=== PATIENT | female | born 1980 | race Caucasian/White ===

== ENCOUNTER 2018-01-22 18:07 | Inpatient (IN) ==
[2018-01-22] MEDS ORDERED: Sod Chloride 0.9% Inj 1,000 ML IV.CONT PRN (18:26)
[2018-01-22] MEDS ORDERED: Sodium Chlor 0.9% Inj 500 ML IV.SIG PRN (18:26)
[2018-01-22] MEDS ORDERED: Oxytocin 30 Units/500ml Premix 30 UNITS/500 ML BAG IV.SIG ONE (18:26)
[2018-01-22] MEDS ORDERED: Naloxone Inj 0.4 MG/ML Vial IV.PUSH PRN (18:26)
[2018-01-22] MEDS ORDERED: fentaNYL Citrate Inj 100 MCG/2 ML Ampul IV.PUSH PRN ×2 (18:26)
[2018-01-22] MEDS ORDERED: Sod Chloride 0.9% Inj 1,000 ML IRRIGATION SCH (18:30)
[2018-01-22] MEDS ORDERED: Citric Acid/Sodium Citrate Liq 30 ML UDC PO SCH (18:30)
--- NOTE | 2018-01-22 18:43 | P.HPOB ---
History of Present Illness Service: Obstetrics Primary Care Physician: No Primary Care Physician Chief Complaint: oligohydramnios, induction at term History of Present Illness: 37 yo with EDC 01/22/18 here for labor induction due to oligohydramnios on routine office ultrasound today, TASNEEM 4cm. Pt without complaints, mild irregular cramping, no regular contractions, no leakage of fluid no vaginal bleeding. Endorses good movement. Pain 1/10 pelvic pressure. Weeks Gestation:: 40 Para: 1 : 3 Total # of Miscarriage(s): 1 - Inpatient Certification I certify that the inpatient services were ordered in accordance with Medicare regulations governing the order. This includes certification that hospital inpatient services are reasonable and necessary and in the case of services not specified as inpatient-only under 42 CFR 419.22(n), that they are appropriately provided as inpatient services in accordance to with the 2-midnight benchmark under 43 CFR 412.3(e) Estimated Total Length of Stay (Days): 5 Plans for Post Hospital Care: Home Review of Systems All other systems reviewed negative except as stated in HPI [facility] - Medical History Medical History: Medical History (Last Updated 01/22/18 @ 18:38 by Vaishali Harmon MD) No significant past medical history - Surgical History Surgical History: Surgical History (Last Updated 01/22/18 @ 18:38 by Vaishali Harmon MD) History of dilation and curettage - Family History Family History: Family History (Last Updated 01/22/18 @ 18:38 by Vaishali Harmon MD) Other No significant family history - Tobacco History Second Hand Smoke Exposure: No Tobacco Use In Past 30 Days: No Smoking Status: Never smoker - Alcohol History How Often Do You Have a Drink Containing Alcohol: Never - Substance Use History Substance History: No History of Abuse - Travel History History of Recent Travel: No Recent Travel in the [place] Within the Last 8 Weeks: No Recent Travel Out of the Country Within the Last 8 Weeks: No Medications and Allergies Active Medications: Active Medications Citric Acid/Sodium Citrate (Sodium Citrate/Citric Acid Liq) 30 ml 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 Stop: 01/26/18 18:29 Dinoprostone (Cervidil Vag Insert) 10 mg VAGINAL ONCE ONE Stop: 01/22/18 18:27 Fentanyl Citrate (Fentanyl Inj) 50 mcg IV.PUSH Q1H PRN PRN Reason: Pain Scale 3 - 5 Fentanyl Citrate (Fentanyl Inj) 100 mcg IV.PUSH Q1H PRN PRN Reason: PAIN SCALE 6 TO 10 Lactated Ringer's (Lr 1000 Ml Inj) 1,000 mls @ 3,000 mls/hr IV.SIG UNSCH PRN PRN Reason: compromise or epidural Sodium Chloride (Ns Inj) 500 mls @ 1,000 mls/hr IV.SIG UNSCH PRN PRN Reason: SEE LABEL COMMENTS Sodium Chloride (Ns Inj) 1,000 mls @ 100 mls/hr IV.CONT .Q10H PRN PRN Reason: SEE LABEL COMMENTS Oxytocin (Pitocin 30 Units/Ns 500 Ml Premix) 30 units in 500 mls @ 999 mls/hr IV.SIG BOLUS ONE Stop: 01/22/18 18:56 Sodium Chloride (Ns Inj) 1,000 mls @ 0 mls/hr IRRIGATION .Q0M SUZIE Stop: 01/23/18 18:29 Lidocaine HCl (Xylocaine 1% Inj) 0.1 ml I-DERMAL PRN PRN PRN Reason: For IV start Stop: 01/25/18 18:25 Lidocaine HCl (Xylocaine 1% Inj) 10 ml INFILTRATN PRN PRN PRN Reason: For episiotomy repair Stop: 01/24/18 18:25 Mineral Oil (Muri-Lube Oil) 10 ml TOPICAL PRN PRN PRN Reason: PRN perineal massage Miscellaneous Information ([facility] Nursing Information) 1 each OTHER ONCE ONE Stop: 01/22/18 18:27 Naloxone HCl (Narcan Inj) 0.1 mg IV.PUSH Q2M PRN PRN Reason: for opiate reversal Ondansetron HCl (Zofran Inj) 4 mg IV.PUSH Q6H PRN PRN Reason: NAUSEA OR VOMITING Sodium Chloride (Ns Flush) 2 ml IV.FLUSH BID SUZIE Sodium Chloride (Ns Flush) 2 ml IV.FLUSH PRN PRN PRN Reason: FLUSH AFTER USING IV ACCESS Allergies Allergy/AdvReac Type Severity Reaction Status Date / Time penicillin G Allergy Mild Unverified 01/28/17 21:58 Exam - Constitutional no acute distress - Routine HEENT Exam Head: Present: normocephalic, atraumatic Eye: Present: EOMI, PERRL ENT: Present: mucous membranes moist - Routine Neck Exam Present: supple, full ROM - Routine Chest/Breast/Axilla Exam Chest wall: Absent: tenderness, mass - Routine Respiratory Exam Absent: accessory muscle use, respiratory distress - Routine Cardiovascular Exam Present: RRR. Absent: bradycardia - Routine Abdominal Exam Present: normoactive bowel sounds Comments: size c/w dates; gravid to 40 weeks - Routine Exam Comments: SVE /-3 - Routine Extremities Exam Absent: cyanosis, clubbing, edema - Routine Skin Exam Present: intact. Absent: cyanosis - Routine Neurological Exam Present: alert, oriented X3 Results - Labs Group B Strep: Negative Caprini VTE Risk Assessment Caprini VTE Risk Assessment: No/Low Risk (score <= 1) VTE Pharmacological Exception Reason: Epidural catheter Caprini Risk Assessment Model: Point Value = 1 Point Value = 2 Point Value = 3 Point Value = 5 Age 41-60 Minor surgery BMI > 25 kg/m2 Swollen legs Varicose veins or History of unexplained or recurrent spontaneous Oral contraceptives or hormone replacement Sepsis (< 1 month) Serious lung disease, including pneumonia (< 1 month) Abnormal pulmonary function Acute myocardial infarction Congestive heart failure (< 1 month) History of inflammatory bowel disease Medical patient at bed rest Age 61-74 Arthroscopic surgery Major open surgery (> 45 min) Laparoscopic surgery (> 45 min) Malignancy Confined to bed (> 72 hours) Immobilizing plaster cast Central venous access Age >= 75 History of VTE Family history of VTE Factor V Leiden Prothrombin [id number] Lupus anticoagulant Anticardiolipin antibodies Elevated serum homocysteine Heparin-induced thrombocytopenia Other congenital or acquired thrombophilia Stroke (< 1 month) Elective arthroplasty Hip, pelvis, or leg fracture Acute spinal cord injury (< 1 month) Prophylaxis Regimen: Total Risk Factor Score Risk Level Prophylaxis Regimen 0-1 Low Early ambulation 2 Moderate Order ONE of the following: *Sequential Compression Device (SCD) *Heparin 5000 units SQ BID 3-4 Higher Order ONE of the following medications: *Heparin 5000 units SQ TID *Enoxaparin/Lovenox 40 mg SQ daily (WT < 150 kg, CrCl > 30 mL/min) *Enoxaparin/Lovenox 30 mg SQ daily (WT < 150 kg, CrCl > 10-29 mL/min) *Enoxaparin/Lovenox 30 mg SQ BID (WT < 150 kg, CrCl > 30 mL/min) AND/OR *Sequential Compression Device (SCD) 5 or more Highest Order ONE of the following medications: *Heparin 5000 units SQ TID (Preferred with Epidurals) *Enoxaparin/Lovenox 40 mg SQ daily (WT < 150 kg, CrCl > 30 mL/min) *Enoxaparin/Lovenox 30 mg SQ daily (WT < 150 kg, CrCl > 10-29 mL/min) *Enoxaparin/Lovenox 30 mg SQ BID (WT < 150 kg, CrCl > 30 mL/min) AND *Sequential Compression Device (SCD) Assessment and Plan - Diagnosis (1) Oligohydramnios Code(s): O41.00X0 - Oligohydramnios, unspecified trimester, not applicable or unspecified Status: Acute (2) Term Code(s): Z34.80 - Encounter for supervision of other normal , unspecified trimester Status: Acute - Plan 37 yo with fatima IUP at 40w seen in office for routine visit and ultrasound with finding of TASNEEM 4cm, dx with oligohydramnios. 1) oligohydramnios, for labor induction: r/b/a d/w pt & including risk of distress, risk of failure of induction, risk of need for , pt voices understanding and consents to induction as indicated; orders for cervidil on admission, re-evaluate for addt'l augmentation methods as needed 2) GBS neg 3) status: vertex, sex unknown (per pt preference), EFW >8#, Cat I tracing currently, TASNEEM 4cm Discharge Planning: routine, 2-3d PP (1) Oligohydramnios Qualifiers: Fetus number: single or unspecified fetus Trimester: third trimester Qualified Code(s): O41.03X0 - Oligohydramnios, third trimester, not applicable or unspecified
[2018-01-22 20:57] LABS: Baso % (Auto) 0.4 % (0.0-2.0); Eos % (Auto) 0.2 % (0.0-4.0); Hematocrit 34.8 % (35.0-46.0); Hemoglobin 12.2 gm/dL (11.6-15.3); Lymph # (Auto) 1.5 th/mm3 (1.0-4.8); Lymph % (Auto) 14.3 % (9.0-44.0); Mean Corpuscular Hemoglobin 30.4 pg (27.0-34.0); Mean Platelet Volume 10.7 fL (7.0-11.0); Mono # (Auto) 0.8 th/mm3 (0.0-0.9); Mono % (Auto) 7.7 % (0.0-8.0); Neut # (Auto) 8.1 th/mm3 (1.8-7.7); Neut % (Auto) 77.4 % (16.0-70.0); Platelet Count 130 th/mm3 (150-450); Red Cell Distribution Width 14.6 % (11.6-17.2); White Blood Count 10.5 th/mm3 (4.0-11.0)
[2018-01-22 22:13] LABS: Bacteria,Urine Moderate /hpf; Bilirubin,Urine Negative (Negative); Calcium Oxalate Crystals,Urine Many /hpf; Clarity,Urine Turbid (Clear); Color,Urine Amber (Yellw/Straw); Glucose,Urine (UA) Negative (Negative); Leukocyte Esterase,Urine Large (Negative); Mucus,Urine Few /lpf (Occasional); Nitrite,Urine Negative (Negative); Specific Gravity,Urine 1.029 (1.002-1.035); Squamous Epithelial Cell,Urine 20 /hpf (0-5)
[2018-01-22 22:24] LABS: Amphetamine Urine With Conf Neg (Neg); Benzodiazepine Urine With Conf Neg (Neg)
[2018-01-23] MEDS ORDERED: Oxytocin 30 Units/500ml Premix 30 UNITS/500 ML BAG IV.SIG PRN (12:00)
[2018-01-23] MEDS ORDERED: fentaNYL 2MCG-Bupiv 0.125% Epi 150 ML EPIDURAL ONE (15:21)
[2018-01-23] MEDS ORDERED: fentaNYL Citrate Inj 100 MCG/2 ML Ampul EPIDURAL ONE (16:07)
[2018-01-23] MEDS ORDERED: fentaNYL 2MCG-Bupiv 0.125% Epi 150 ML EPIDURAL PRN (16:07)
[2018-01-24] MEDS ORDERED: Benzocaine 20% Top Spray 60 ML Can TOPICAL PRN (03:17)
[2018-01-24] MEDS ORDERED: Naloxone Inj 0.4 MG/ML Vial IV.PUSH PRN (03:17)
[2018-01-24] MEDS ORDERED: Zolpidem Tartrate 5 MG Tablet PO PRN (03:17)
[2018-01-24] MEDS ORDERED: Acetaminophen 325 MG Tablet PO PRN (03:17)
[2018-01-24] MEDS ORDERED: Bisacodyl 10 MG Supp RECTAL PRN (03:17)
--- NOTE | 2018-01-24 03:17 | P.OBDELI ---
Weeks Gestation: 40 Patient Started Active Labor: Yes Active Labor Start Date: 01/23/18 Active Labor Start Time: 22:00 Medical Induction of Labor: Yes Medical Induction Start Date: 01/22/18 Medical Induction Start Time: 22:00 Artificial Rupture of Membrane: Yes Artificial ROM Date: 01/23/18 Artificial ROM Time: 22:00 Anesthesia: Epidural Episiotomy: none Vaginal Delivery: Normal Presentation: Occiput anterior Nuchal Cord: None Delayed Cord Clamping (45 sec): Yes Placenta: Spontaneous delivery Laceration: 2 deg Repair: Chromic interrupted, Vicryl running Estimated blood loss (mL): 300 Infant: Female
[2018-01-24] MEDS ORDERED: Oxytocin 30 Units/500ml Premix 30 UNITS/500 ML BAG IV.CONT SCH (03:30)
[2018-01-24] MEDS ORDERED: PNV CMB FERROUS FUMARATE FA PO SCH (09:00)
[2018-01-24] MEDS: Witch Hazel 50%/Glyderin 12.5% 40 Pad Jar RECTAL PRN (09:16)
[2018-01-24] MEDS: Senna/Docusate Sodium 8.6/50 MG Tablet PO SCH (09:16)
[2018-01-24] MEDS: Ibuprofen 400 MG Tablet PO PRN ×2 (09:17→19:33)
--- NOTE | 2018-01-24 10:01 | P.PNOB ---
Subjective Post day: 0 Interval history: doing well, Objective Vital Signs/I&O: Vital Signs 01/23/18 11:34 01/23/18 12:14 01/23/18 12:31 Temperature 98.1 F Pulse Rate 69 72 67 Respiratory Rate 17 Blood Pressure 129/71 132/92 H 120/74 01/23/18 13:00 01/23/18 13:30 01/23/18 14:00 Temperature Pulse Rate 61 66 73 Respiratory Rate Blood Pressure 117/69 123/74 124/70 01/23/18 14:21 01/23/18 14:30 01/23/18 15:01 Temperature 98.2 F Pulse Rate 74 60 Respiratory Rate 16 Blood Pressure 119/73 114/75 01/23/18 15:39 01/23/18 15:40 01/23/18 15:45 Temperature Pulse Rate 73 73 75 Respiratory Rate Blood Pressure 133/87 132/84 119/71 01/23/18 15:55 01/23/18 16:00 01/23/18 16:25 Temperature Pulse Rate 71 75 68 Respiratory Rate Blood Pressure 119/71 119/68 116/63 01/23/18 16:31 01/23/18 17:01 01/23/18 17:30 Temperature Pulse Rate 75 63 63 Respiratory Rate Blood Pressure 111/75 103/46 L 120/83 01/23/18 18:01 01/23/18 18:30 01/23/18 18:59 Temperature 97.8 F Pulse Rate 66 67 Respiratory Rate 18 Blood Pressure 112/68 127/82 01/23/18 19:00 01/23/18 19:15 01/23/18 19:45 Temperature Pulse Rate 75 63 Respiratory Rate 18 18 Blood Pressure 133/91 H 119/79 01/23/18 20:15 01/23/18 20:24 01/23/18 20:31 Temperature 98.2 F Pulse Rate 63 Respiratory Rate 18 18 Blood Pressure 105/91 H 01/23/18 21:04 01/23/18 21:31 01/23/18 22:00 Temperature Pulse Rate 64 63 66 Respiratory Rate 18 Blood Pressure 111/60 106/56 L 119/61 01/23/18 22:45 01/23/18 23:01 01/23/18 23:30 Temperature 98.4 F Pulse Rate 73 Respiratory Rate 18 Blood Pressure 123/82 119/78 01/24/18 00:01 01/24/18 00:15 01/24/18 00:30 Temperature Pulse Rate 56 L 66 Respiratory Rate 18 Blood Pressure 115/70 124/86 01/24/18 01:15 01/24/18 01:30 01/24/18 02:01 Temperature Pulse Rate 66 99 H Respiratory Rate 18 Blood Pressure 130/82 112/88 01/24/18 02:05 01/24/18 02:15 01/24/18 03:00 Temperature 98.5 F Pulse Rate 87 Respiratory Rate 18 Blood Pressure 145/76 H 01/24/18 03:28 01/24/18 03:31 01/24/18 03:34 Temperature 98.9 F Pulse Rate 88 74 Respiratory Rate 20 18 Blood Pressure 133/84 124/68 01/24/18 04:00 01/24/18 04:01 01/24/18 05:00 Temperature 99.2 F Pulse Rate 89 67 Respiratory Rate 18 18 Blood Pressure 110/81 121/69 01/24/18 07:47 Temperature 98.0 F Pulse Rate 69 Respiratory Rate 20 Blood Pressure 127/73 Intake & Output 01/23/18 01/24/18 01/24/18 18:59 06:59 18:59 Weight 95 kg Other: Weight On Admission 165 kg Result Diagrams: 01/22/18 19:45 Objective Remarks: GENERAL: Well-nourished, well-developed patient. CARDIOVASCULAR: Regular rate and rhythm without murmurs, gallops, or rubs. RESPIRATORY: Breath sounds equal bilaterally. No accessory muscle use. ABDOMEN/GI: Abdomen soft, non-tender. Fundus: Firm, non-tender at umbilicus. GENITOURINARY: Light to moderate bleeding. EXTREMITIES: No cyanosis or edema, non-tender, without signs of DVT. Medications and IVs: Active Medications Acetaminophen (Tylenol) 650 mg PO Q4H PRN PRN Reason: PAIN SCALE 1 TO 2 Al Hydroxide/Mg Hydroxide (Milk Of Magnesia Liq) 30 ml PO Q12H PRN PRN Reason: Mild Constipation Benzocaine (Americaine 20% Top [place]) 1 spray TOPICAL Q4H PRN PRN Reason: For Perineum Discomfort Last Admin: 01/24/18 09:16 Dose: 1 spray Bisacodyl (Dulcolax Supp) 10 mg RECTAL DAILY PRN PRN Reason: SEVERE CONSITIPATION Citric Acid/Sodium Citrate (Sodium Citrate/Citric Acid Liq) 30 ml PO MANAGER STRATEGIC SOURCING [facility] Stop: 01/26/18 18:29 Last Admin: 01/23/18 23:03 Dose: 30 ml Diphtheria/Pertussis/Tetanus Vacc (Boostrix Vaccine Inj) 0.5 ml IM .ONCE ONE Stop: 01/24/18 16:01 Ibuprofen (Motrin) 800 mg PO Q8H PRN PRN Reason: For cramping Last Admin: 01/24/18 09:17 Dose: 800 mg Lactulose (Lactulose Liq) 30 ml PO DAILY PRN PRN Reason: SEVERE CONSITIPATION Measles/Mumps/Rubella Vaccine Live (M-M-R Ii Vaccine Inj) 0.5 ml SQ .ONCE ONE Stop: 01/24/18 16:01 Miscellaneous Information (Misc Information) 1 each OTHER UNSCH PRN PRN Reason: SEE LABEL COMMENTS Stop: 01/24/18 16:07 Miscellaneous Information (Misc Information) 1 each OTHER UNSCH PRN PRN Reason: SEE LABEL COMMENTS Stop: 01/24/18 16:07 Naloxone HCl (Narcan Inj) 0.1 mg IV.PUSH Q2M PRN PRN Reason: for opiate reversal Ondansetron HCl (Zofran Odt) 4 mg PO Q6H PRN PRN Reason: NAUSEA OR VOMITING Pnv Cmb#95-Ferrous Fumarate-Fa [ ] 1 Tab) 0 each PO DAILY [facility] Senna/Docusate Sodium (Kacy-Colace) 1 tab PO BID [facility] Last Admin: 01/24/18 09:16 Dose: 1 tab Sennosides (Senokot) 17.2 mg PO Q12H PRN PRN Reason: Moderate Constipation Sodium Chloride (Ns Flush) 2 ml IV.FLUSH BID [facility] Sodium Chloride (Ns Flush) 2 ml IV.FLUSH PRN PRN PRN Reason: FLUSH AFTER USING IV ACCESS Witch Carole/Glycerin (Tucks Pads) 1 applicatio RECTAL QID PRN PRN Reason: HEMORRHOIDS Last Admin: 01/24/18 09:16 Dose: 1 applicatio Zolpidem Tartrate (Ambien) 5 mg PO HS PRN PRN Reason: SLEEP Assessment and Plan - Diagnosis (1) Oligohydramnios Code(s): O41.00X0 - Oligohydramnios, unspecified trimester, not applicable or unspecified Status: Acute (2) Term Code(s): Z34.80 - Encounter for supervision of other normal , unspecified trimester Status: Acute (3) Vaginal delivery Code(s): O80 - Encounter for full-term uncomplicated delivery Status: Acute - Plan 37 yo with fatima IUP at 40w seen in office for routine visit and ultrasound with finding of TASNEEM 4cm, dx with oligohydramnios. s/p PPD#0, 9lbs 11 oz, female continue PP care consider d/c home in am Discharge Planning: routine - Attending Attestation pt seen by me (1) Oligohydramnios Qualifiers: Fetus number: single or unspecified fetus Trimester: third trimester Qualified Code(s): O41.03X0 - Oligohydramnios, third trimester, not applicable or unspecified
[2018-01-24] MEDS ORDERED: Diphtheria/Tetanus/Pertussis Vaccine Inj 0.5 ML Syringe IM ONE (16:00)
[2018-01-24] MEDS ORDERED: Measles/Mumps/Rubella Vaccine Inj 0.5 ML Vial SQ ONE (16:00)
[2018-01-25] MEDS: Senna/Docusate Sodium 8.6/50 MG Tablet PO SCH ×2 (04:18→08:01)
--- NOTE | 2018-01-25 09:17 | P.PNOB ---
Subjective Post day: 1 Interval history: pt states baby is NICU for low O2 sat, doing better now Objective Vital Signs/I&O: Vital Signs 01/24/18 19:30 01/25/18 07:28 Temperature 98.1 F 97.9 F Pulse Rate 70 55 L Respiratory Rate 18 20 Blood Pressure 128/69 121/69 Intake & Output 01/24/18 01/25/18 01/25/18 18:59 06:59 18:59 Intake Total Balance Intake: Intake (Blood Product) Amt Rho(D) Immune Globulin Unit [id number] Result Diagrams: 01/22/18 19:45 Objective Remarks: GENERAL: Well-nourished, well-developed patient. CARDIOVASCULAR: Regular rate and rhythm without murmurs, gallops, or rubs. RESPIRATORY: Breath sounds equal bilaterally. No accessory muscle use. ABDOMEN/GI: Abdomen soft, non-tender. Fundus: Firm, non-tender at umbilicus. GENITOURINARY: Light to moderate bleeding. EXTREMITIES: No cyanosis or edema, non-tender, without signs of DVT. 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 Stop: 01/26/18 18:29 Last Admin: 01/23/18 23:03 Dose: 30 ml Ibuprofen (Motrin) 800 mg PO Q8H PRN PRN Reason: For cramping Last Admin: 01/25/18 08:01 Dose: 800 mg Lactulose (Lactulose Liq) 30 ml PO DAILY PRN PRN Reason: SEVERE CONSITIPATION Naloxone HCl (Narcan Inj) 0.1 mg IV.PUSH Q2M PRN PRN Reason: for opiate reversal Ondansetron HCl (Zofran Odt) 4 mg PO Q6H PRN PRN Reason: NAUSEA OR VOMITING Pnv Cmb#95-Ferrous Fumarate-Fa [ ] 1 Tab) 0 each PO DAILY [facility] Senna/Docusate Sodium (Kacy-Colace) 1 tab PO BID [facility] Last Admin: 01/25/18 08:01 Dose: 1 tab Sennosides (Senokot) 17.2 mg PO Q12H PRN PRN Reason: Moderate Constipation Sodium Chloride (Ns Flush) 2 ml IV.FLUSH BID [facility] Last Admin: 01/25/18 08:02 Dose: Not Given Sodium Chloride (Ns Flush) 2 ml IV.FLUSH PRN PRN PRN Reason: FLUSH AFTER USING IV ACCESS Witch Carole/Glycerin (Tucks Pads) 1 applicatio RECTAL QID PRN PRN Reason: HEMORRHOIDS Last Admin: 01/24/18 09:16 Dose: 1 applicatio Zolpidem Tartrate (Ambien) 5 mg PO HS PRN PRN Reason: SLEEP Assessment and Plan - Diagnosis (1) Oligohydramnios Code(s): O41.00X0 - Oligohydramnios, unspecified trimester, not applicable or unspecified Status: Acute (2) Term Code(s): Z34.80 - Encounter for supervision of other normal , unspecified trimester Status: Acute (3) Vaginal delivery Code(s): O80 - Encounter for full-term uncomplicated delivery Status: Acute - Plan 37 yo with fatima IUP at 40w seen in office for routine visit and ultrasound with finding of ATSNEEM 4cm, dx with oligohydramnios. s/p PPD#1, 9lbs 11 oz, female continue PP care consider d/c home in am Discharge Planning: routine - Attending Attestation pt seen by me (1) Oligohydramnios Qualifiers: Fetus number: single or unspecified fetus Trimester: third trimester Qualified Code(s): O41.03X0 - Oligohydramnios, third trimester, not applicable or unspecified
[2018-01-26] MEDS: Senna/Docusate Sodium 8.6/50 MG Tablet PO SCH ×2 (03:59→08:44)
[2018-01-26] MEDS: Witch Hazel 50%/Glyderin 12.5% 40 Pad Jar RECTAL PRN (08:43)
--- NOTE | 2018-01-26 08:49 | P.PNOB ---
Subjective Post day: 2 Interval history: s/p FT Objective Vital Signs/I&O: Vital Signs 01/25/18 21:45 Temperature 98.3 F Pulse Rate 76 Respiratory Rate 16 Blood Pressure 121/75 Result Diagrams: 01/22/18 19:45 Objective Remarks: GENERAL: Well-nourished, well-developed patient. CARDIOVASCULAR: Regular rate and rhythm without murmurs, gallops, or rubs. RESPIRATORY: Breath sounds equal bilaterally. No accessory muscle use. ABDOMEN/GI: Abdomen soft, non-tender. Fundus: Firm, non-tender at umbilicus. GENITOURINARY: Light bleeding. EXTREMITIES: No cyanosis or edema, non-tender, without signs of DVT. 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 [facility] Stop: 01/26/18 18:29 Last Admin: 01/23/18 23:03 Dose: 30 ml Ibuprofen (Motrin) 800 mg PO Q8H PRN PRN Reason: For cramping Last Admin: 01/26/18 08:44 Dose: 800 mg Lactulose (Lactulose Liq) 30 ml PO DAILY PRN PRN Reason: SEVERE CONSITIPATION Naloxone HCl (Narcan Inj) 0.1 mg IV.PUSH Q2M PRN PRN Reason: for opiate reversal Ondansetron HCl (Zofran Odt) 4 mg PO Q6H PRN PRN Reason: NAUSEA OR VOMITING Pnv Cmb#95-Ferrous Fumarate-Fa [ ] 1 Tab) 0 each PO DAILY [facility] Senna/Docusate Sodium (Kacy-Colace) 1 tab PO BID [facility] Last Admin: 01/26/18 08:44 Dose: 1 tab Sennosides (Senokot) 17.2 mg PO Q12H PRN PRN Reason: Moderate Constipation Sodium Chloride (Ns Flush) 2 ml IV.FLUSH BID SUZIE Last Admin: 01/26/18 03:59 Dose: Not Given Sodium Chloride (Ns Flush) 2 ml IV.FLUSH PRN PRN PRN Reason: FLUSH AFTER USING IV ACCESS Witch Carole/Glycerin (Tucks Pads) 1 applicatio RECTAL QID PRN PRN Reason: HEMORRHOIDS Last Admin: 01/26/18 08:43 Dose: 1 applicatio Zolpidem Tartrate (Ambien) 5 mg PO HS PRN PRN Reason: SLEEP Assessment and Plan - Diagnosis (1) Vaginal delivery Code(s): O80 - Encounter for full-term uncomplicated delivery Status: Acute (2) Oligohydramnios Code(s): O41.00X0 - Oligohydramnios, unspecified trimester, not applicable or unspecified Status: Acute (3) Term Code(s): Z34.80 - Encounter for supervision of other normal , unspecified trimester Status: Acute - Plan s/p PPD#2, 9lbs 11 oz, female continue PP care d/c to home today Discharge Planning: routine (2) Oligohydramnios Qualifiers: Fetus number: single or unspecified fetus Trimester: third trimester Qualified Code(s): O41.03X0 - Oligohydramnios, third trimester, not applicable or unspecified
--- NOTE | 2018-01-26 08:52 | P.DS ---
Date of admission: 01/22/18 18:07 Primary care physician: Kailee Primary Care Physician Attending physician on discharge: Vaishali Harmon Anticipated date of discharge: 01/26/18 Brief History from admission: 37 yo with EDC 01/22/18 admitted for labor induction due to oligohydramnios on routine office ultrasound TASNEEM 4cm. On admission Pt without complaints, mild irregular cramping, no regular contractions, no leakage of fluid no vaginal bleeding. Endorses good movement. Pain 1/10 pelvic pressure. DS: Diagnosis - Discharge Diagnosis (1) Vaginal delivery Status: Acute (2) Oligohydramnios Status: Acute (3) Term Status: Acute DS: Summary Hospital Course: uncomplicated , infant large for dates, admitted to NICU due to blood sugar issues; patient did well , meeting all d/c criteria by PPD#2 - Time Spent with Patient Total time spent providing and/or coordinating discharge services: Greater than 30 minutes Exam Vital signs: Vital Signs 01/25/18 21:45 Temperature 98.3 F Pulse Rate 76 Respiratory Rate 16 Blood Pressure 121/75 - Constitutional no acute distress - Routine HEENT Exam Head: Present: normocephalic, atraumatic Eye: Present: EOMI, PERRL ENT: Present: mucous membranes moist - Routine Neck Exam Present: supple, full ROM - Routine Chest/Breast/Axilla Exam Chest wall: Absent: tenderness - Routine Respiratory Exam Present: CTA bilaterally. Absent: accessory muscle use - Routine Cardiovascular Exam Present: RRR. Absent: bradycardia - Routine Abdominal Exam Present: soft, normoactive bowel sounds - Routine Extremities Exam Absent: cyanosis, edema - Routine Skin Exam Present: intact. Absent: cyanosis - Routine Neurological Exam Present: alert, oriented X3 Results Procedures completed during hospitalization: vaginal delivery Discharge Plan - Discharge Disposition Patient Disposition: 01 Discharge Home - Discharge Condition Condition: Good - Discharge Order Discharge Orders: Discharge Order (Routine); Ordered 01/26/18 Ordered By: Vaishali Harmon - Discharge Details Anticipated Discharge Date: 01/26/18 - Physicians Team Primary Care Provider: Primary Care Kailee Baxter Attending Provider: Beverly Cordova - Rxs /Orders / Referrals /Forms Prescriptions: No Action PNV cmb#95-ferrous fumarate-FA [] 28 mg iron- 800 mcg Tablet 1 tab PO DAILY Referrals: Vaishali Harmon MD [Physician] - See Instructions - Post Discharge Care Plan Care Plan Goals: Your Health Problems: Goals to Promote Your Health: * To prevent worsening of your condition * To maintain your health at the optimal level Directions to Meet Your Goals: * Take your medications as prescribed * Follow your dietary instruction * Follow activity as directed * Keep your appointments as scheduled * Take your immunizations and boosters as scheduled * If your symptoms worsen call your PCP * If no PCP go to Urgent Care or Emergency Room Smoking is dangerous to your health. Avoid second hand smoke. You may reach the 24-hour crisis hotline for domestic abuse at .
[2018-01-26 10:38] VITALS: BP 141/84; PULSE 82
[2018-01-26 10:39] VITALS: RESP 18; TEMP 98.2
== END 2018-01-26 12:25 | disposition home or self-care (01) ==
LOC: H2E 18:07 → H1EA 01-24 04:45
PROVIDERS: ADMIT Obstetrics & Gynecology; ATTEND Obstetrics & Gynecology